=== PATIENT | female | born 1995 ===

== ENCOUNTER 2018-10-28 10:57 | Outpatient (CLI) | payer OTHER | END 2018-10-28 12:00 | disposition home or self-care (01) | LOC: PRENATAL 10:57 | DX: O99.212 Obesity complicating pregnancy, second trimester (principal); O35.3XX1 Maternal care for (suspected) damage to fetus from viral disease in mother, fetus 1 ==

== ENCOUNTER → 2018-11-30 | Outpatient (CLI) | payer OTHER | END | disposition home or self-care (01) | LOC: PRENATAL 08:30 | DX: O26.842 Uterine size-date discrepancy, second trimester (principal); O99.212 Obesity complicating pregnancy, second trimester ==

== ENCOUNTER 2019-02-17 20:04 | Inpatient (IN) | payer OTHER ==
[~2019-02-17] VITALS: Ht 154.9 cm; Wt 97.1 kg
[2019-02-17] MEDS ORDERED: PRENATAL TABLE1 EAC1 PO (20:12)
== END 2019-02-24 15:36 | disposition home or self-care (01) | DRG 807 ==
LOC: LDR 20:04 → OB/GYN 02-18 13:32
PROVIDERS: ADMIT Specialist
PROC: 4A1HXCZ Monitoring of Products of Conception, Cardiac Rate, External Approach (ICD-10-PCS; 2019-02-17)
PROC: BY4FZZZ Ultrasonography of Third Trimester, Single Fetus (ICD-10-PCS; 2019-02-21)
PROC: BT4JZZZ Ultrasonography of Kidneys and Bladder (ICD-10-PCS; 2019-02-21)
PROC: 10E0XZZ Delivery of Products of Conception, External Approach (ICD-10-PCS; principal; 2019-02-22)
PROC: 0W8NXZZ Division of Female Perineum, External Approach (ICD-10-PCS; 2019-02-22)
DX: O80 Encounter for full-term uncomplicated delivery (principal); Z37.0 Single live birth; Z3A.35 35 weeks gestation of pregnancy